=== PATIENT | female | born 1980 | race Caucasian/White ===

== ENCOUNTER 2021-11-16 13:41 | Emergency (ER) | payer OTHER, SELFPAY ==
[2021-11-16] VITALS (13 sets, daily range): BP systolic 120–143; BP diastolic 73–102; PULSE 80–107; RESP 13–25; TEMP 36.3–36.6; O2SAT 97–100
--- NOTE | ~2021-11-16 | XR_ITS ---
XR chest 2V DATE: 11/16/2021 16:20 INDICATION: Syncopal episode last night TECHNIQUE: AP and lateral views COMPARISON: 09/04/2015 PA chest FINDINGS: Normal heart size. No hilar or mediastinal enlargement. The lungs are clear of infiltrate o r consolidation. No pleural effusion or pulmonary vascular congestion or pneumothorax. IMPRESSION: No active cardiopulmonary disease Reviewed, dictated and finalized at location A.
--- NOTE | 2021-11-16 15:21 | ECG_ITS ---
Measurements Intervals [place] Rate: 73 P: 65 KS: 166 QRS: 64 QRSD: 98 T: 39 QT: 379 QTc: 419 Interpretive Statements SINUS RHYTHM POSSIBLE LEFT ATRIAL ENLARGEMENT BORDERLINE ECG Electronically Signed On 11-16-2021 16:38:25 CDT by Travis Parra D.O.
[2021-11-16] MEDS: SODIUM CHLORIDE 0.9% IV 1,000 ML 999 ML IV CONT (16:11)
[2021-11-16 16:55] LABS: Appearance Urine Clear (Clear); Bilirubin Urine Negative (Negative); Color Urine Yellow (Yellow); Glucose Urine UA Negative (Negative); Ketones Urine Negative (Negative); Leukocyte Esterase Ur Negative LEU/UL (Negative); Nitrate Urine Negative (Negative); Protein Urine Negative (Negative); Urobilinogen Urine 0.2 mg/dL (<2.0)
[2021-11-16 16:59] LABS: Mucus Urine Few /lpf; Squamous Epithelial Cell Urine Few /hpf (Few)
[2021-11-16 17:00] LABS: Add Urine Microscopic? YES; Blood Urine Trace-Intact (Negative)
[2021-11-16 17:39] LABS: Basophils Absolute Auto 0.1 K/mm3 (0.0-0.1); Basophils Percent Auto 0.9 % (0.2-1.2); Eosinophils Absolute Auto 0.1 K/mm3 (0-0.3); Eosinophils Percent Auto 1.6 % (0-4.4); Hematocrit 39.5 % (37.0-47.0); Hemoglobin 12.7 g/dL (12.0-15.0); Immature Granulocyte Absolute 0.02 K/mm3 (0.00-0.031); Immature Granulocyte Percent A 0.3 % (0-0.5); Lymphocytes Percent Auto 30.5 % (18.3-44.2); Mean Corpuscular HGB Conc 32.2 g/dl (32-36); Mean Corpuscular Hemoglobin 32.6 pg (26-34); Mean Corpuscular Volume 101.3 fl (80-100); Mean Platelet Volume 10.2 fl (7.4-10.4); Monocytes Absolute Auto 0.6 K/mm3 (0.1-0.6); Monocytes Percent Auto 8.7 % (2.6-8.5); Platelet Count Result 195 k/mm3 (150-375); Red Cell Distribution Width 13.5 % (11.5-14.5); White Blood Count 6.9 K/mm3 (4.5-10.0)
[2021-11-16 17:46] LABS: Alanine Aminotransferase 18 U/L (6-35); Albumin Level 3.9 g/dL (3.5-5.1); Alkaline Phosphatase 59 U/L (38-126); Anion Gap 4 mmol/L (8-16); Aspartate Amino Transferase 23 U/L (14-36); Bilirubin,Total 0.5 mg/dL (0.2-1.3); Blood Urea Nitrogen 12 mg/dL (7-17); Calcium 8.1 mg/dL (8.4-10.2); Carbon Dioxide 26 mmol/L (22-30); Chloride 108 mmol/L (98-107); Estimated CRCL calculation 96 ml/min; Estimated Glomerular Filt Rate > 60; Glucose 75 mg/dL (65-110); Potassium 3.8 mmol/L (3.4-5.0); Sodium 138 mmol/L (137-145)
--- NOTE | 2021-11-16 18:53 | ED.SYNCOPE ---
HPI - Syncope General Chief Complaint: Syncope Stated Complaint: syncope last pm Time Seen by Provider: 11/16/21 15:11 History of Present Illness HPI narrative: Patient is a 41-year-old female who presents ER to be evaluated for syncope that occurred last night. She was at her parents house and took 2 puffs off of a Max [employer]un[employer] joint that her father brought in town from [place]. She then reports she got lightheaded and had a syncopal episode where she fell and struck her face on the ground. Her family then carried her to a couch where she slept for 3 hours and then she went home. She only discovered that she had a hard fall today after going back to her parents house. She reports that she has had multiple episodes of syncope throughout her life. Will often occur after she has a coughing fit. She has no chest pain or chest pressure or dizziness at this time. No focal neurologic weakness. Patient does endorse a lot of stress in her life both at work and in her personal life. She does not wish to expand on these. She has no suicidal ideation. Related Data Home Medications Medication Instructions Recorded Confirmed No Home Medications 11/16/21 11/16/21 Allergies Allergy/AdvReac Type Severity Reaction Status Date / Time Penicillins Allergy Mild Swelling Verified 11/16/21 15:17 Review of Systems Review of Systems: All systems reviewed & are unremarkable except as noted in HPI and below Constitutional: Constitutional: Denies chills and Denies fever(s) Cardiovascular: Cardiovascular: Denies chest pain, Denies rapid heart rate and Denies radiating jaw, neck or arm pain Respiratory: Respiratory: Denies cough and Denies dyspnea Gastrointestinal: Gastrointestinal: Denies abdominal pain, Denies nausea and Denies vomiting Neurologic: Reports syncope, Denies headache(s), Denies focal weakness and Denies numbness PMFSH Past Medical History Medical History (Updated 11/16/21 @ 22:10 by Ulises Christianson MD) Anxiety Depression Kidney stones Surgical History Surgical History (Updated 11/16/21 @ 22:10 by Ulises Christianson MD) No pertinent past surgical history Social History Social History (Updated 11/16/21 @ 22:10 by Ulises Christianson MD) Substance use type: marijuana Other substance usage details: Very rare usage, last time was several years ago. Exam Narrative: GENERAL: Well-appearing, well-nourished, and in no acute distress. HEAD: Normocephalic, atraumatic. ENT: Mucous membranes moist. CHEST: Clear to auscultation. No respiratory distress. HEART: Regular rate and rhythm. No murmur heard. Normal peripheral pulses. ABDOMEN: Soft, nontender, nondistended. EXTREMITIES: Normal range of motion. No edema. SKIN: Warm, dry, no rash. NEURO: Alert and oriented x3. PSYCH: Normal mood and affect. Course Course Emergency Course: Unremarkable evaluation. [place] to be vasovagal syncope given patient's history. Recommend follow-up with PCP. Vital Signs Vital signs: Vital Signs Temperature 97.4 F L 11/16/21 13:42 Pulse Rate 100 11/16/21 13:42 Respiratory Rate 16 11/16/21 13:42 Blood Pressure 128/90 11/16/21 13:42 Pulse Oximetry 100 11/16/21 13:42 Oxygen Delivery Room Air 11/16/21 13:42 Temperature 97.8 F 11/16/21 15:43 Pulse Rate 80 11/16/21 18:15 Respiratory Rate 18 11/16/21 18:15 Blood Pressure 132/82 11/16/21 18:15 Pulse Oximetry 98 11/16/21 18:15 Oxygen Delivery Room Air 11/16/21 15:55 MDM - Syncope Lab Data Result diagrams: 11/16/21 16:52 11/16/21 16:52 Labs: Lab Results 11/16/21 11/16/21 11/16/21 Range/Units 16:46 16:52 16:52 WBC 6.9 (4.5-10.0) K/mm3 RBC 3.90 L (4.2-5.4) M/mm3 Hgb 12.7 (12.0-15.0) g/dL Hct 39.5 (37.0-47.0) % MCV 101.3 H (80-100) fl MCH 32.6 (26-34) pg MCHC 32.2 (32-36) g/dl RDW 13.5 (11.5-14.5) % Plt Count 195 (150-375) k/mm3 MPV 10.2
== END 2021-11-16 19:07 | disposition home or self-care (01) ==
PROVIDERS: Emergency Provider Emergency Medicine
DX: R55 Syncope and collapse (principal)
CPT/HCPCS: 36415; 71046; 80053; 81001; 85025; 93005; 96360; 99283; J7030

== ENCOUNTER 2024-03-17 06:52 | Emergency (ER) | payer OTHER, SELFPAY ==
[2024-03-17 06:58] VITALS: BP 128/91; PULSE 75; RESP 18; TEMP 36.7; O2SAT 100
--- NOTE | 2024-03-17 07:35 | ED.GENADULT ---
HPI - General Adult General Chief complaint: Extremity Problem,Nontraumatic Stated complaint: right hand numb, pain down arm Time Seen by Provider: 03/17/24 07:02 History of Present Illness HPI narrative: 43-year-old female present to the emergency department for evaluation for right wrist pain. Patient states the pain is worsened when she wakes up in the morning. Patient states the pain does radiate to the wrist. Patient denies any specific falls or injuries. Patient reports increased pain with volar and dorsal flexion. Patient does report increased pain with range of motion. Related Data Allergies Allergy/AdvReac Type Severity Reaction Status Date / Time Penicillins Allergy Mild Swelling Verified 11/16/21 15:17 Review of Systems Review of Systems: All systems reviewed & are unremarkable except as noted in HPI and below PMFSH Past Medical History Medical History (Updated 03/17/24 @ 07:40 by Lauri Damon MD) Anxiety Depression Kidney stones Surgical History Surgical History (Updated 11/16/21 @ 22:10 by Ulises Christianson MD) No pertinent past surgical history Social History Social History (Updated 11/16/21 @ 22:10 by Ulises Christianson MD) Substance use type: marijuana Other substance usage details: Very rare usage, last time was several years ago. Exam Narrative: APPEARANCE: Well appearing, no pain, no distress, well-nourished. HEAD: normocephalic, atraumatic. EYES: PERRLA/EOMI, conjunctivae clear. NOSE: Normal no drainage EARS:TMS clear with good light reflex. THROAT: Pharynx clear, no exudate. NECK: Supple. No adenopathy, no masses. RESPIRATORY: Airway patent, respirations nonlabored. Clear to auscultation bilaterally, no rales, rhonchi, wheezing. CARDIOVASCULAR: Regular rate and rhythm without murmurs rubs or gallops. ABDOMINAL: Soft, nontender, nondistended, normal bowel sounds MUSCULOSKELETAL: Tenderness at right wrist and worsened with flexion and extension of the wrist NEURO: Alert. Cranial nerves II through XII intact. Good gait. Good coordination SKIN: Warm, dry. Normal Color Course Vital Signs Vital signs: Vital Signs Temperature 98.1 F 03/17/24 06:58 Pulse Rate 75 03/17/24 06:58 Respiratory Rate 18 03/17/24 06:58 Blood Pressure 128/91 H 03/17/24 06:58 Pulse Oximetry 100 03/17/24 06:58 Oxygen Delivery Room Air 03/17/24 06:58 Temperature 98.1 F 03/17/24 06:58 Pulse Rate 75 03/17/24 06:58 Respiratory Rate 18 03/17/24 06:58 Blood Pressure 128/91 H 03/17/24 06:58 Pulse Oximetry 100 03/17/24 06:58 Oxygen Delivery Room Air 03/17/24 06:58 Medical Decision Making MDM Narrative Medical decision making narrative: 43-year-old female presents emergency department for evaluation for right wrist pain. Patient's symptoms are consistent with peripheral neuropathy also likely secondary to overuse injury and carpal tunnel. Vital Signs Vital Signs: Vital Signs Temperature 98.1 F 03/17/24 06:58 Pulse Rate 75 03/17/24 06:58 Respiratory Rate 18 03/17/24 06:58 Blood Pressure 128/91 H 03/17/24 06:58 Pulse Oximetry 100 03/17/24 06:58 Oxygen Delivery Room Air 03/17/24 06:58 Temperature 98.1 F 03/17/24 06:58 Pulse Rate 75 03/17/24 06:58 Respiratory Rate 18 03/17/24 06:58 Blood Pressure 128/91 H 03/17/24 06:58 Pulse Oximetry 100 03/17/24 06:58 Oxygen Delivery Room Air 03/17/24 06:58 Discharge Plan Discharge Clinical Impression: Peripheral neuropathy, Overuse injury Patient Disposition: Home, Self-Care Condition: Stable Instructions: Antibiotic Form, Carpal Tunnel Syndrome (DC), Paresthesia (ED) Additional Instructions: Avoid repetitive use activities at work. Medrol Dosepak as directed until completed. Wear a volar wrist splint at night to prevent wrist flexion. Have close follow-up with your primary care physician and with Orthopedics. If you have any worsening symptoms then please call or return to the emergency department. Prescriptions: New methylprednisolone [Medrol (Moi)] 4 mg tablets,dose pack See Rx Instructions .ROUTE .COMPLEX Qty: 21 0RF Rx Instructions: for 6 days cyclobenzaprine 10 mg tablet 10 mg PO BID PRN (Reason: muscle spasm) Qty: 14 0RF Follow-up/Referrals: Parviz Hernandez MD [Physician] - PHYSICIAN,CLIENT TECHNICAL PROFESSIONAL [Non-Staff] -
== END 2024-03-17 08:05 | disposition home or self-care (01) ==
LOC: ANHED 07:57
PROVIDERS: Emergency Provider Emergency Medicine
DX: M25.531 Pain in right wrist (principal); M70.841 Other soft tissue disorders related to use, overuse and pressure, right hand; F41.8 Other specified anxiety disorders; G62.9 Polyneuropathy, unspecified
CPT/HCPCS: 99283